=== PATIENT | male | born 1995 | race Caucasian/White ===

== ENCOUNTER → 2024-10-05 | Outpatient (CLI) | payer MEDICAID, SELFPAY ==
--- NOTE | 2024-10-05 09:00 | XR_ITS ---
Examination: MRI thoracic spine without contrast. Date and time of exam: October 05, 2024 1937 hrs. Indications: Back pain 5 years Technique: Multiple sagittal and axial images of the thoracic spine have been obtained. T1 weighted localizer, sagittal T2 weighted images, TR 30-50, TE 148, T1 weighted sagittal images, TR 650, TE 14, T2-weighted transverse images, TR 6770, TE 142 Findings: No thoracic fracture Mild to moderate diffuse thoracic disc narrowing with disc desiccation No focal thoracic disc protrusion impinging upon the thoracic cord No localized enlargement thoracic cord No thoracic syrinx Impression: Mild to moderate diffuse thoracic degenerative disc disease
== END | disposition home or self-care (01) ==
DX: M51.362 Other intervertebral disc degeneration, lumbar region with discogenic back pain and lower extremity pain (principal)
CPT/HCPCS: 72146

== ENCOUNTER → 2024-10-27 | Outpatient (CLI) | payer MEDICAID, SELFPAY ==
--- NOTE | 2024-10-27 13:37 | XR_ITS ---
Examination: MRI lumbar spine without contrast Date and time of exam: October 27, 2024 1543 hours Comparison November 02, 2019 INDICATIONS: Low back pain 5 years increasing in severity radiating down the legs TECHNIQUE: Multiple axial sagittal MR lumbar spine images FINDINGS: Adequate alignment lumbar vertebral bodies on the lateral view Moderate disc narrowing L5-S1 Disc desiccation lower 3 lumbar levels L5-S1 6 mm central lumbar disc bulge extending to the left foraminal region with mild left L5 ganglionic compression L4-L5 6 mm right paracentral disc bulge L3-L4 3 mm central lumbar disc bulge L2-L3 no disc protrusion L1-L2 no disc protrusion IMPRESSION: L5-S1 6 mm central lumbar disc bulge extending to the left foraminal region with mild left L5 ganglionic compression L4-L5 6 mm right paracentral disc bulge L3-L4 3 mm central lumbar disc bulge
== END | disposition home or self-care (01) ==
LOC: SMRI 13:14
DX: G95.20 Unspecified cord compression (principal); M51.369 Other intervertebral disc degeneration, lumbar region without mention of lumbar back pain or lower extremity pain; M51.379 Other intervertebral disc degeneration, lumbosacral region without mention of lumbar back pain or lower extremity pain
CPT/HCPCS: 72148